=== PATIENT | female | born 1940 | race Caucasian/White ===

== ENCOUNTER 2023-10-05 08:45 | Day surgery (SDC) | payer MEDICARE, SELFPAY ==
[2023-10-05] VITALS (14 sets, daily range): BP systolic 77–136; BP diastolic 31–72; BMI 22.5
[2023-10-05 09:27] LABS: Hemoglobin 13.6 g/dL (12.0-16.0); Mean Corpuscular Hgb 30.9 pg (27.0-31.0); Mean Corpuscular Volume 90.9 fL (81.0-99.0); Mean Platelet Volume 10.7 fL (7.4-10.4); Platelet Count 200 10^3/uL (130-400); Red Cell Dist. Width 13.8 % (11.5-14.5); White Blood Cell Count 7.3 10^3/uL (4.8-10.8)
[2023-10-05] MEDS: NSS 1000 IV ×2 (09:30→12:31)
[2023-10-05 09:43] LABS: Blood Urea Nitrogen 18 mg/dl (7-17); Carbon Dioxide 29 mmol/L (22-30); Chloride 103 mmol/L (98-107); Estimated Creatinine Clearance 51 ml/min; Glucose 92 mg/dl (70-99); Potassium 4.3 mmol/L (3.5-5.1); Sodium 140 mmol/L (135-145); eGFR > 60.00
[2023-10-05] MEDS: LOW STRENGTH ASPIRIN 81 MG PO (11:18)
--- NOTE | 2023-10-05 14:22 | ITS.CL.CATH ---
[facility] - Catheterization
Cardiac Catheterization
Procedure Report:
LEFT HEART CATHETERIZATION
Date of Procedure: October 05, 2023
Procedures performed:
1: Coronary angiography
2: Left ventricular hemodynamic assessment
3: Saphenous vein bypass graft angiography
Primary Care Physician: Dr. Valorie العراقي
Primary Coffee Roaster: Dr. Conchis Larose
INDICATION: The patient is an 82-year-old woman with a complex past medical history including severe coronary artery disease with three-vessel obstructive disease by cardiac catheterization in 2018, status post CABG at that time where unfortunately
her OSCAR was not suitable for use (too small) and her only coronary able to be grafted was her LAD (all others too small or calcified or both), severe PAD s/p b/l iliac kissing stents in 2016, known infrarenal AAA (3.1cm in [address]), HTN, COPD,
and history of heavy smoking referred for cath after high risk stress myoview.
ACCESS: The patient was prepped and draped in usual sterile fashion. A 5 [place] sheath was placed in the right radial artery using the Seldinger over the wire technique.
HEMODYNAMIC FINDINGS (mmHg):
LV(s/d,EDP): 144/12, 27
Ao(s/d,m): 144/67, 99
ANGIOGRAPHIC FINDINGS:
Single-plane Left Ventriculography in POP Projection: Not done. Recent echo performed September 20 showed low normal LV systolic function with a visually estimated ejection fraction of 50%.
Coronary Angiography:
Dominance: Right
Left Main: Heavily calcified and functionally occluded with a trickle of antegrade flow into a very limited portion of the proximal LAD and proximal circumflex. Only 1 small high obtuse marginal branch noted to fill via antegrade flow.
Left Anterior Descending: Occluded
Left Circumflex: Occluded
Right Coronary: Occluded
SVG to mid LAD: Large graft that is widely patent. Left to left collaterals to the circumflex system with underfilling of 2 major branches. Retrograde flow up the LAD with moderate to severe proximal disease jeopardizing flow into 2 small diagonal
branches. Left to right collaterals filling mostly through a RV marginal branch collateral filling the entire RCA system.
Fluoroscopy Time (min): 3.4
Radiation Dose (mGy): 287
DAP (Gy.cm2): 17
Closure device: None. A TR band was applied for hemostasis at the right wrist.
Complications: None.
ASSESSMENT:
1: Widely patent solitary vein graft to the LAD with collateral filling of the RCA and circumflex via collaterals.
2: Complete occlusion of the [place] left and right coronary arteries. Clearly this accounts for the markedly abnormal stress test.
3: Elevated filling pressures in the setting of systemic hypertension.
CONCLUSIONS and RECOMMENDATIONS:
1: Medical therapy for diffuse severe coronary artery disease and peripheral arterial disease with close clinical follow-up as scheduled.
Titus Mensah M.D.
Copy to: Dr. Valorie العراقي
== END 2023-10-05 15:35 | disposition home or self-care (01) ==
LOC: CATH 08:45
PROVIDERS: ATTENDING PHYSICIAN Internal Medicine Interventional Cardiology; FAMILY PHYSICIAN Internal Medicine; OTHER PHYSICIAN Internal Medicine Cardiovascular Disease
DX: I25.10 Atherosclerotic heart disease of native coronary artery without angina pectoris (principal); I25.82 Chronic total occlusion of coronary artery; I10 Essential (primary) hypertension; R94.39 Abnormal result of other cardiovascular function study; I25.84 Coronary atherosclerosis due to calcified coronary lesion; Z95.5 Presence of coronary angioplasty implant and graft; Z95.820 Peripheral vascular angioplasty status with implants and grafts; Z87.891 Personal history of nicotine dependence
CPT/HCPCS: 80048; 85027; 93459; C1894; Q9967